=== PATIENT | male | born 1960 | race Caucasian/White ===

== ENCOUNTER 2016-06-29 08:39 | Emergency (ER) | payer OTHER ==
--- NOTE | 2016-06-29 09:01 | ED CLINICAL REPORT ---
Clinical Report - Physicians/Mid Levels [facility] [address] [place] [address] 06/29/2016 8:41 Patient: DANIELLE CAGE Time Seen: 0840. Arrived- By private vehicle. Historian- patient. HISTORY OF PRESENT ILLNESS Chief Complaint: WEAKNESS. right. The patient has had weakness. No numbness. This started today, patient was last known well (yesterday) and is still present (staying the same). It was abrupt in onset and has been constant but is not gone now. At its maximum deficit described as moderate. When seen in the E.D.,deficit described as moderate. No dizziness, altered mental status, seizure or blackouts. Usually is alert and oriented X3 and has normal mobility. (no recent travel, camping, or tick bites.). Similar symptoms previously: None. Recent medical care: Not recently seen/assessed. REVIEW OF SYSTEMS No fever, headache, head injury, chest pain or difficulty breathing. No cough, nausea, skin rash or vomiting. All systems otherwise negative, except as recorded above. PAST HISTORY See nurses notes. Problems: no known problems. Additional Surgeries: no known surgeries. Medications: None. Allergies: No Known Drug Allergy. SOCIAL HISTORY Never smoker. No alcohol use or drug use. Is a local resident. FAMILY HISTORY Negative. ADDITIONAL NOTES The nursing notes have been reviewed. PHYSICAL EXAM Vital Signs: 06/29/2016 08:41 BP: 180/110. HR: 93. RR: 22. O2 saturation: 100%. Temp: 98.3 F. Oxygen saturation normal. Appearance: Alert. No acute distress. Head: Head atraumatic. Eyes: Pupils equal, round and reactive to light. ENT: Normal ENT inspection. Airway intact. Pharynx normal. (Right-sided conjunctival injection. On fluorescein examination no uptake of dye. No foreign bodies. No discharge from the eye. No cell and flare. Negative Iva sign. No dendritic pattern. Patient is unable to completely close the right eye with normal blinking.). Neck: Normal inspection. Neck supple. CVS: Normal heart rate and rhythm. Heart sounds normal. Pulses normal. Respiratory: No respiratory distress. Breath sounds normal. Abdomen: Soft and nontender. No organomegaly. Back: Normal inspection. Skin: Skin warm and dry. Normal skin color. No rash. Normal skin turgor. Extremities: Extremities exhibit normal ROM. No lower extremity edema. Neuro: Alert. Oriented X 3. Mood/affect normal. Speech normal. No cerebellar findings. No motor deficit. No sensory deficit. Reflexes normal. 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 Forehead is not spared.). PROGRESS AND PROCEDURES Course of Care: The patient is a pleasant 55-year-old male presenting for evaluation of right-sided facial weakness. NDE ON EXAMINATION> Patient has no fever. Patient has no other neurological deficits noted. Appears to be peripheralin nature. Do not feel that this is stroke. Patient with isolated peripheral seventh nerve palsy. I discussion the patient in regards to risk factors for Lyme disease. Do not feel that further workup for Lyme disease is warranted at this time as patient has not had any recent exposures that would be concerning. Patient be treated with steroids and antivirals. I ointment will be provided forprotection of desiccation. Patient is stable outpatient candidate. Patient will be instructed to follow-up with his primary care doctor for further workup and management and other concerns. Discussed with patient workup, diagnosis, home care, follow-up, and return precautions. All questions have been answered. The patient expressed understanding of these instructions and was agreeable to them. Disposition: Discharged. Condition: good. 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 INSTRUCTIONS Warnings: GENERAL WARNINGS: Return or contact your physician immediately if your condition worsens or changes unexpectedly, if not improving as expected, or if other problems arise. Specifically return if pain, vomiting, bleeding, breathing difficulty or fever. Your Current Medications: CONTINUE TAKING THE FOLLOWING MEDICATIONS: None*. Prescription Medications: Acyclovir 400 mg: Take 1 orally five times a day for 10 days. No refill. (Disp suff quant. Substitution allowed.) Prednisone 50 mg: take 1 orally every day for 5 days. Dispense five (5). No refills. OTC Medications: Lacri-Lube ophthalmic ointment (available over the counter): take according to label instructions. Follow-up: Return to the emergency department as needed. Follow up with your doctor in three days. Reason for referral: recheck today's concerns. Summary of care provided to patient via paper. Screening today revealed the patient's blood pressure to be in the normal range. The patient should follow up with a primary care provider for blood pressure management. Understanding of the discharge instructions verbalized by patient. (Electronically signed by Vincent Curry Dr. 07/04/2016 7:11)
--- NOTE | 2016-06-29 09:01 | ED NURSING NOTES ---
Clinical Report - Nurses [facility] [address] [place] [address] 06/29/2016 8:41 [id number] TRI[facility] Triage time 08:41. Acuity: LEVEL 3. Chief Complaint: NUMBNESS and (RIGHT FACE). Alert. No acute distress. MIKAELA COMA SCORE: [place] Coma Scale: 15- eyes open spontaneously (4); best verbal response- oriented x 4 (5); best motor response- obeys commands (6). --08:47 Ade Dorado R.N. 08:41 06/29/16. BP: 180/110. HR: 93. RR: 22. O2 saturation: 100% on room air. Temp: 98.3 F (oral). --08:47 Ade Dorado R.N. Weight: 85.7 kg stated. Height/Length: 68 inches Per Patient. BMI: 28.7. --08:46 Ade Dorado R.N. Medications None. --08:45 Ade Dorado R.N. Medication/allergy information source: the patient. --08:47 Ade Dorado R.N. Allergies No Known Drug Allergy. --08:46 Ade Dorado R.N. History Arrived by private vehicle. Historian: patient. Accompanied by family. Primary physician (Av Bojorquez). This started last night. SOCIAL HX: Smoker- current status unknown (no). No alcohol use or drug use. FALL RISK ASSESSMENT: Fall risk assessment completed. No fall risk identified. FUNCTIONAL ASSESSMENT: Functional assessment: no impairments noted. LEARNING NEEDS ASSESSMENT: The learning needs assessment revealed no barriers. --08:47 Ade Dorado R.N. PROBLEMS: no known problems. ADDITIONAL SURGERIES: no known surgeries. Assessment GENERAL / NEURO / PSYCH: Alert. Oriented X 4. Appears in no acute distress. Patient appears calm and cooperative. RESPIRATORY: Respirations not labored. SKIN: Skin is warm and dry. --08:47 Ade Dorado R.N. Interventions ID band on patient. To treatment room. --08:47 Ade Dorado R.N. PHYSICAL ASSESSMENT 08:45 06/29/16. Ambulatory to room. Patient gowned. GENERAL / NEURO / PSYCH: Awake. Oriented X 4. Alert. Appears in no acute distress. Speech normal. Mood/affect normal. Moves all extremities. RESPIRATORY: Respirations not labored. CVS: Cardiac rhythm: sinus rhythm. SKIN: Skin is warm and dry. --08:45 Ade Dorado R.N. NURSING PROGRESS NOTES 08:45 06/29/16. Cardiac rhythm: sinus rhythm. radiation monitor, pulse oximeter and NIBP monitor placed on patient. Patient gowned. Head of bed elevated. Call light placed in reach. Side rails up x 1. Bed placed in lowest position. Brakes of bed on. --08:45 Ade Dorado R.N. 08:55 06/29/2016 FLUORESCEIN Opth soln 1 Strip given. (per ERMD). --09:05 Ade Dorado R.N. 09:00 06/29/2016 Proparacaine Eye Drops 2 drop given. Given in the right eye. (by ERMD). --09:05 Ade Droado R.N. 09:02 06/29/2016 Acyclovir PO Capsules 400 mg given. Allergies verified and confirmed 5 rights. --09:02 Ade Dorado R.N. 09:02 06/29/2016 Prednisone PO Tablets 60 mg given. Allergies verified and confirmed 5 rights. --09:02 Ade Dorado R.N. 09:10. Reassessment after procedure. He is calm and resting quietly. Overall patient status is the same- he states feels the same. GENERAL / NEURO / PSYCH: Alert. Oriented X 4. RESPIRATORY: No respiratory distress. SKIN: Skin is warm and dry. --09:17 Ade Dorado R.N. DISPOSITION / DISCHARGE Departure time: 909. Condition at departure: stable. No learning barriers present. Discharge instructions provided and reviewed with the patient. Reviewed medication(s). Prescription(s) given to the patient. Patient verbalized understanding. Written instructions provided in Togolese. The patient was discharged home and accompanied by spouse. He left the Emergency Department ambulatory and via private vehicle. FALL RISK ASSESSMENT: Fall risk assessment completed. No fall risk identified. --09:19 Ade Dorado R.N. 09:10 06/29/16. BP: 145/95. HR: 89. RR: 20. O2 saturation: 98% on room air. Temp: 98.3 F (oral). Pain level now: 0/10. --09:19 Ade Dorado R.N. Locked/Released at 06/29/2016 9:22 by Ade Dorado R.N.
--- NOTE | 2016-06-29 09:01 | ED NURSING NOTES ---
Clinical Report - Nurses Merged [facility] [address] [place] [address] 06/29/2016 8:41 [id number] Triage time 08:41. Acuity: LEVEL 3. Chief Complaint: NUMBNESS and (RIGHT FACE). Alert. No acute distress. MIKAELA COMA SCORE: [place] Coma Scale: 15- eyes open spontaneously (4); best verbal response- oriented x 4 (5); best motor response- obeys commands (6). --08:47 Ade Dorado R.N. 08:41 06/29/16. BP: 180/110. HR: 93. RR: 22. O2 saturation: 100% on room air. Temp: 98.3 F (oral). --08:47 Ade Dorado R.N. Weight: 85.7 kg stated. Height/Length: 68 inches Per Patient. BMI: 28.7. --08:46 Ade Dorado R.N. Medications None. --08:45 Ade Dorado R.N. Medication/allergy information source: the patient. --08:47 Aed Dorado R.N. Allergies No Known Drug Allergy. --08:46 Ade Dorado R.N. History Arrived by private vehicle. Historian: patient. Accompanied by family. Primary physician (Av Bojorquez). This started last night. SOCIAL HX: Smoker- current status unknown (no). No alcohol use or drug use. FALL RISK ASSESSMENT: Fall risk assessment completed. No fall risk identified. FUNCTIONAL ASSESSMENT: Functional assessment: no impairments noted. LEARNING NEEDS ASSESSMENT: The learning needs assessment revealed no barriers. --08:47 Ade Dorado R.N. PROBLEMS: no known problems. ADDITIONAL SURGERIES: no known surgeries. Assessment GENERAL / NEURO / PSYCH: Alert. Oriented X 4. Appears in no acute distress. Patient appears calm and cooperative. RESPIRATORY: Respirations not labored. SKIN: Skin is warm and dry. --08:47 Ade Dorado R.N. Interventions ID band on patient. To treatment room. --08:47 Ade Dorado R.N. PHYSICAL ASSESSMENT 08:45 06/29/16. Ambulatory to room. Patient gowned. GENERAL / NEURO / PSYCH: Awake. Oriented X 4. Alert. Appears in no acute distress. Speech normal. Mood/affect normal. Moves all extremities. RESPIRATORY: Respirations not labored. CVS: Cardiac rhythm: sinus rhythm. SKIN: Skin is warm and dry. --08:45 Ade Dorado R.N. NURSING PROGRESS NOTES 08:45 06/29/16. Cardiac rhythm: sinus rhythm. clinical nurse, pulse oximeter and NIBP monitor placed on patient. Patient gowned. Head of bed elevated. Call light placed in reach. Side rails up x 1. Bed placed in lowest position. Brakes of bed on. --08:45 Ade Dorado R.N. 08:55 06/29/2016 FLUORESCEIN Opth soln 1 Strip given. (per ERMD). --09:05 Ade Dorado R.N. 09:00 06/29/2016 Proparacaine Eye Drops 2 drop given. Given in the right eye. (by ERMD). --09:05 Ade Dorado R.N. 09:02 06/29/2016 Acyclovir PO Capsules 400 mg given. Allergies verified and confirmed 5 rights. --09:02 Ade Dorado R.N. 09:02 06/29/2016 Prednisone PO Tablets 60 mg given. Allergies verified and confirmed 5 rights. --09:02 Ade Dorado R.N. 09:10. Reassessment after procedure. He is calm and resting quietly. Overall patient status is the same- he states feels the same. GENERAL / NEURO / PSYCH: Alert. Oriented X 4. RESPIRATORY: No respiratory distress. SKIN: Skin is warm and dry. --09:17 Ade Dorado R.N. DISPOSITION / DISCHARGE Departure time: 909. Condition at departure: stable. No learning barriers present. Discharge instructions provided and reviewed with the patient. Reviewed medication(s). Prescription(s) given to the patient. Patient verbalized understanding. Written instructions provided in Taiwanese. The patient was discharged home and accompanied by spouse. He left the Emergency Department ambulatory and via private vehicle. FALL RISK ASSESSMENT: Fall risk assessment completed. No fall risk identified. --09:19 Ade Dorado R.N. 09:10 06/29/16. BP: 145/95. HR: 89. RR: 20. O2 saturation: 98% on room air. Temp: 98.3 F (oral). Pain level now: 0/10. --09:19 Ade Dorado R.N. Locked/Released at 06/29/2016 9:22 by Ade Dorado R.N.
--- NOTE | 2016-06-29 09:01 | ED ORDER SUMMARY ---
..... Patient: DANIELLE CAGE OrderSheet [facility] VisitID: [id number] [address] [place] [address] 55y, M Registration Date/Time: 06/29/2016 ORDER SHEET Weight: 85.7 kg (stated) Allergies: No Known Drug Allergy GENERAL ORDERS: MEDICATION ORDERS: Fluorescein Eye Strips 1 strips (NOW) (08:48 06/29/2016 Piedad Billy) (Ack 8:54 Eneida R.N.) (9:05 Eneida R.N.) Proparacaine Eye Drops (Solution 0.5 %) 2 drops (NOW, affected eye) (08:48 06/29/2016 Piedad Billy) (Ack 8:54 Eneida R.N.) (9:05 Eneida R.N.) Acyclovir PO 400 mg (NOW) (08:50 06/29/2016 Piedad Billy) (Ack 8:54 Eneida R.N.) (9:02 Eneida R.N.) Prednisone PO 60 mg (NOW) (08:50 06/29/2016 Piedad Billy) (Ack 8:54 Eneida R.N.) (9:02 Eneida R.N.) IV FLUIDS: ORDER SHEET NOTES: [Electronically signed by Ade Dorado R.N. (09:22 06/29/2016)] [Electronically signed by Vincent Curry Dr. (07:11 07/04/2016)] [Electronically locked/signed by Ade Dorado R.N. (09:22 06/29/2016)]
--- NOTE | 2016-06-29 09:01 | ED ORDER SUMMARY ---
..... Patient: DANIELLE CAGE OrderSheet [facility] VisitID: [id number] [address] [place] [address] 55y, M Registration Date/Time: 06/29/2016 ORDER SHEET Weight: 85.7 kg (stated) Allergies: No Known Drug Allergy GENERAL ORDERS: MEDICATION ORDERS: Fluorescein Eye Strips 1 strips (NOW) (08:48 06/29/2016 Piedad Billy) (Ack 8:54 Eneida R.N.) (9:05 Eneida R.N.) Proparacaine Eye Drops (Solution 0.5 %) 2 drops (NOW, affected eye) (08:48 06/29/2016 Piedad Billy) (Ack 8:54 Eneida R.N.) (9:05 Eneida R.N.) Acyclovir PO 400 mg (NOW) (08:50 06/29/2016 Piedad Billy) (Ack 8:54 Eneida R.N.) (9:02 Eneida R.N.) Prednisone PO 60 mg (NOW) (08:50 06/29/2016 Piedad Billy) (Ack 8:54 Eneida R.N.) (9:02 Eneida R.N.) IV FLUIDS: ORDER SHEET NOTES: [Electronically signed by Ade Dorado R.N. (09:22 06/29/2016)] [Electronically signed by Vincent Curry Dr. (07:11 07/04/2016)] [Electronically locked/signed by Ade Dorado R.N. (09:22 06/29/2016)]
--- NOTE | 2016-07-04 07:11 | ED MAR SUMMARY ---
..... Medication Administration Record [facility] [address] [place] [address] Patient: DANIELLE CAGE Visit ID: [id number] 55y, M Weight: 85.7 kg Height/Length: 68 in BMI: 28.7 ALLERGIES: No Known Drug Allergy Given 08:55 06/29/2016 Ade Dorado R.N. Medication Administered: FLUORESCEIN [EYE STRIPS], Dose: 1 Strip Opth soln. Medication Ordered: Fluorescein Eye Strips 1 strips (NOW). Given 09:00 06/29/2016 Ade Dorado R.N. Medication Administered: PROPARACAINE [EYE DROPS], Dose: 2 drop Eye Drops. Medication Ordered: Proparacaine Eye Drops (Solution 0.5 %) 2 drops (NOW, affected eye). Given 09:02 06/29/2016 Ade Dorado R.N. Medication Administered: ACYCLOVIR [PO], Dose: 400 mg Capsules PO. Medication Ordered: Acyclovir PO 400 mg (NOW). Given 09:02 06/29/2016 Ade Dorado R.N. Medication Administered: PREDNISONE [PO], Dose: 60 mg Tablets PO. Medication Ordered: Prednisone PO 60 mg (NOW).
--- NOTE | 2016-07-04 07:11 | ED DISCHARGE INSTRUCTIONS ---
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 INSTRUCTIONS Warnings: GENERAL WARNINGS: Return or contact your physician immediately if your condition worsens or changes unexpectedly, if not improving as expected, or if other problems arise. Specifically return if pain, vomiting, bleeding, breathing difficulty or fever. Your Current Medications: CONTINUE TAKING THE FOLLOWING MEDICATIONS: None*. Prescription Medications: Acyclovir 400 mg: Take 1 orally five times a day for 10 days. No refill. (Disp suff quant. Substitution allowed.) Prednisone 50 mg: take 1 orally every day for 5 days. Dispense five (5). No refills. OTC Medications: Lacri-Lube ophthalmic ointment (available over the counter): take according to label instructions. Follow-up: Return to the emergency department as needed. Follow up with your doctor in three days. Reason for referral: recheck today's concerns. Summary of care provided to patient via paper. Screening today revealed the patient's blood pressure to be in the normal range. The patient should follow up with a primary care provider for blood pressure management. Understanding of the discharge instructions verbalized by patient. ADDITIONAL INFORMATION Charles's Palsy Charles's Palsy is a problem involving the nerve that controls the muscles on one side of the face. The cause is unknown, but may be related to inflammation of the nerve. Most persons with this problem recover completely within 3-6 months. Symptoms on the involved side of the face may include: inability to close the upper eyelid, excess tearing, facial drooping with uneven mouth shape, drooling, facial numbness or pain, changes in taste, sensitivity to sound. The most serious problem is possible injury to the eye. Since you cannot blink normally, you must protect your eye from flying dust particles, wind, etc. Also, since tears cannot lubricate the eye without blinking, there is danger that the cornea (clear part in front of the colored iris) will dry out and form an ulcer. This could permanently affect vision. Home Care: Use Artificial Tears frequently during the day and at bedtime to prevent drying. These drops are available without prescription at your drug store. Wear protective glasses especially when outside to protect from flying debris. Tape the eyelid closed at bedtime with a paper tape (available at your pharmacy). This has a very mild adhesive to avoid injury to the lid. This will protect your eye from injury while you sleep. Sometimes medicines are prescribed to reduce inflammation or treat specific viral infections of the nerve. If medicines are prescribed, take them exactly as directed. Follow Up with your doctor or with an Ear/Nose/Throat specialist within the next two weeks. Get Prompt Medical Attention if any of the following occur: Redness of the eye or pus draining from the eye Change in vision or pain in the eye Appearance of headache, neck pain, fever or other unexplained symptoms Difficulty with speech or walking Weakness in one arm or leg Acyclovir Oral tablet What is this medicine? ACYCLOVIR (ay MAICOE kloe veer) is an antiviral medicine. It is used to treat or prevent infections caused by certain kinds of viruses. Examples of these infections include herpes and shingles. This medicine will not cure herpes. How should I use this medicine? Take this medicine by mouth with a glass of water. Follow the directions on the prescription label. You can take it with or without food. Take your medicine at regular intervals. Do not take your medicine more often than directed. Take all of your medicine as directed even if you think your are better. Do not skip doses or stop your medicine early. Talk to your locum tenens regarding the use of this medicine in children. While this drug may be prescribed for selected conditions, precautions do apply. What side effects may I notice from receiving this medicine? Side effects that you should report to your doctor or health resident caregiver as soon as possible: allergic reactions like skin rash, itching or hives, swelling of the face, lips, or tongue chest pain confusion, hallucinations, tremor dark urine increased sensitivity to the sun redness, blistering, peeling or loosening of the skin, including inside the mouth seizures trouble passing urine or change in the amount of urine unusual bleeding or bruising, or pinpoint red spots on the skin unusually weak or tired yellowing of the eyes or skin Side effects that usually do not require medical attention (report to your doctor or health resident caregiver if they continue or are bothersome): diarrhea fever headache nausea, vomiting stomach upset What may interact with this medicine? probenecid What if I miss a dose? If you miss a dose, take it as soon as you can. If it is almost time for your next dose, take only that dose. Do not take double or extra doses. Where should I keep my medicine? Keep out of the reach of children. Store at room temperature between 15 and 25 degrees C (59 and 77 degrees F). Throw away any unused medicine after the expiration date. What should I tell my health care provider before I take this medicine? They need to know if you have any of these conditions: kidney disease an unusual or allergic reaction to acyclovir, ganciclovir, valacyclovir, other medicines, foods, dyes, or preservatives or trying to get breast-feeding What should I watch for while using this medicine? Tell your doctor or health resident caregiver if your symptoms do not improve. This medicine works best when started very early in the course of an infection. Begin treatment at the first signs of infection. Drink 6 to 8 glasses of water or fluids every day while you are taking this medicine. This will help prevent side effects. You can still pass chickenpox, shingles, or herpes to another person even while you are taking this medicine. Avoid contact with others as directed. Genital herpes is a sexually transmitted disease. Talk to your doctor about how to stop the spread of infection. Prednisone Oral tablet What is this medicine? PREDNISONE (PRED ni sone) is a corticosteroid. It is commonly used to treat inflammation of the skin, joints, lungs, and other organs. Common conditions treated include asthma, allergies, and arthritis. It is also used for other conditions, such as blood disorders and diseases of the adrenal glands. How should I use this medicine? Take this medicine by mouth with a glass of water. Follow the directions on the prescription label. Take this medicine with food. If you are taking this medicine once a day, take it in the morning. Do not take more medicine than you are told to take. Do not suddenly stop taking your medicine because you may develop a severe reaction. Your doctor will tell you how much medicine to take. If your doctor wants you to stop the medicine, the dose may be slowly lowered over time to avoid any side effects. Talk to your locum tenens regarding the use of this medicine in children. Special care may be needed. What side effects may I notice from receiving this medicine? Side effects that you should report to your doctor or health resident caregiver as soon as possible: allergic reactions like skin rash, itching or hives, swelling of the face, lips, or tongue changes in emotions or moods changes in vision depressed mood eye pain fever or chills, cough, sore throat, pain or difficulty passing urine increased thirst swelling of ankles, feet Side effects that usually do not require medical attention (report to your doctor or health resident caregiver if they continue or are bothersome): confusion, excitement, restlessness headache nausea, vomiting skin problems, acne, thin and shiny skin trouble sleeping weight gain What may interact with this medicine? Do not take this medicine with any of the following medications: metyrapone mifepristone This medicine may also interact with the following medications: aminoglutethimide amphotericin B aspirin and aspirin-like medicines barbiturates certain medicines for diabetes, like glipizide or glyburide cholestyramine cholinesterase inhibitors cyclosporine digoxin diuretics ephedrine female hormones, like estrogens and control pills isoniazid ketoconazole NSAIDS, medicines for pain and inflammation, like ibuprofen or naproxen phenytoin rifampin toxoids vaccines warfarin What if I miss a dose? If you miss a dose, take it as soon as you can. If it is almost time for your next dose, talk to your doctor or health resident caregiver. You may need to miss a dose or take an extra dose. Do not take double or extra doses without advice. Where should I keep my medicine? Keep out of the reach of children. Store at room temperature between 15 and 30 degrees C (59 and 86 degrees F). Protect from light. Keep container tightly closed. Throw away any unused medicine after the expiration date. What should I tell my health care provider before I take this medicine? They need to know if you have any of these conditions: Diana's syndrome diabetes glaucoma heart disease high blood pressure infection (especially a virus infection such as chickenpox, cold sores, or herpes) kidney disease liver disease mental illness myasthenia gravis osteoporosis seizures stomach or intestine problems thyroid disease an unusual or allergic reaction to lactose, prednisone, other medicines, foods, dyes, or preservatives or trying to get breast-feeding What should I watch for while using this medicine? Visit your doctor or health resident caregiver for regular checks on your progress. If you are taking this medicine over a prolonged period, carry an identification card with your name and address, the type and dose of your medicine, and your doctor's name and address. This medicine may increase your risk of getting an infection. Tell your doctor or health resident caregiver if you are around anyone with measles or chickenpox, or if you develop sores or blisters that do not heal properly. If you are going to have surgery, tell your doctor or health resident caregiver that you have taken this medicine within the last twelve months. Ask your doctor or health resident caregiver about your diet. You may need to lower the amount of salt you eat. This medicine may affect blood sugar levels. If you have diabetes, check with your doctor or health resident caregiver before you change your diet or the dose of your diabetic medicine. You have been given the following additional information: Charles's Palsy Acyclovir Oral tablet Prednisone Oral tablet (Electronically signed by Vincent Curry Dr. 07/04/2016 7:11)
--- NOTE | 2016-07-04 07:11 | ED MED RECONCILIATION SUMMARY ---
Patient: DANIELLE CAGE Medication Reconciliation Report [facility] VisitID: [id number] [address] [place] [address] 55y, M Registration Date/Time: 06/29/2016 Weight: 85.7 kg Height/Length: 68 in. BMI: 28.7 ALLERGIES: No Known Drug Allergy The patient's Home Medications are listed below: NONE. The source(s) of the original Home Medication information: patient The following Medications were given to the patient in the Emergency Department: Acyclovir [PO] PO 400 mg, administered: 06/29/2016 9:02:00 AM Prednisone [PO] PO 60 mg, administered: 06/29/2016 9:02:00 AM Proparacaine [Eye Drops] Eye Drops 2 drop, administered: 06/29/2016 9:00:00 AM FLUORESCEIN [EYE STRIPS] Opth soln 1 Strip, administered: 06/29/2016 8:55:00 AM The following Medications were prescribed to the patient: Acyclovir 400 mg: Take 1 orally five times a day for 10 days. No refill.(Disp suff quant. Substitution allowed.) -- Vincent Curry Dr. Lacri-Lube ophthalmic ointment (available over the counter): take according to label instructions. -- Vincent Curry Dr. Prednisone 50 mg: take 1 orally every day for 5 days. Dispense five (5). No refills. -- Vincent Curry Dr.
--- NOTE | 2016-07-04 07:11 | ED DISCHARGE INSTRUCTIONS ---
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 INSTRUCTIONS Warnings: GENERAL WARNINGS: Return or contact your physician immediately if your condition worsens or changes unexpectedly, if not improving as expected, or if other problems arise. Specifically return if pain, vomiting, bleeding, breathing difficulty or fever. Your Current Medications: CONTINUE TAKING THE FOLLOWING MEDICATIONS: None*. Prescription Medications: Acyclovir 400 mg: Take 1 orally five times a day for 10 days. No refill. (Disp suff quant. Substitution allowed.) Prednisone 50 mg: take 1 orally every day for 5 days. Dispense five (5). No refills. OTC Medications: Lacri-Lube ophthalmic ointment (available over the counter): take according to label instructions. Follow-up: Return to the emergency department as needed. Follow up with your doctor in three days. Reason for referral: recheck today's concerns. Summary of care provided to patient via paper. Screening today revealed the patient's blood pressure to be in the normal range. The patient should follow up with a primary care provider for blood pressure management. Understanding of the discharge instructions verbalized by patient. ADDITIONAL INFORMATION Charles's Palsy Charles's Palsy is a problem involving the nerve that controls the muscles on one side of the face. The cause is unknown, but may be related to inflammation of the nerve. Most persons with this problem recover completely within 3-6 months. Symptoms on the involved side of the face may include: inability to close the upper eyelid, excess tearing, facial drooping with uneven mouth shape, drooling, facial numbness or pain, changes in taste, sensitivity to sound. The most serious problem is possible injury to the eye. Since you cannot blink normally, you must protect your eye from flying dust particles, wind, etc. Also, since tears cannot lubricate the eye without blinking, there is danger that the cornea (clear part in front of the colored iris) will dry out and form an ulcer. This could permanently affect vision. Home Care: Use Artificial Tears frequently during the day and at bedtime to prevent drying. These drops are available without prescription at your drug store. Wear protective glasses especially when outside to protect from flying debris. Tape the eyelid closed at bedtime with a paper tape (available at your pharmacy). This has a very mild adhesive to avoid injury to the lid. This will protect your eye from injury while you sleep. Sometimes medicines are prescribed to reduce inflammation or treat specific viral infections of the nerve. If medicines are prescribed, take them exactly as directed. Follow Up with your doctor or with an Ear/Nose/Throat specialist within the next two weeks. Get Prompt Medical Attention if any of the following occur: Redness of the eye or pus draining from the eye Change in vision or pain in the eye Appearance of headache, neck pain, fever or other unexplained symptoms Difficulty with speech or walking Weakness in one arm or leg Acyclovir Oral tablet What is this medicine? ACYCLOVIR (ay MAICOE kloe veer) is an antiviral medicine. It is used to treat or prevent infections caused by certain kinds of viruses. Examples of these infections include herpes and shingles. This medicine will not cure herpes. How should I use this medicine? Take this medicine by mouth with a glass of water. Follow the directions on the prescription label. You can take it with or without food. Take your medicine at regular intervals. Do not take your medicine more often than directed. Take all of your medicine as directed even if you think your are better. Do not skip doses or stop your medicine early. Talk to your electric meter installer regarding the use of this medicine in children. While this drug may be prescribed for selected conditions, precautions do apply. What side effects may I notice from receiving this medicine? Side effects that you should report to your doctor or health housekeeper child care as soon as possible: allergic reactions like skin rash, itching or hives, swelling of the face, lips, or tongue chest pain confusion, hallucinations, tremor dark urine increased sensitivity to the sun redness, blistering, peeling or loosening of the skin, including inside the mouth seizures trouble passing urine or change in the amount of urine unusual bleeding or bruising, or pinpoint red spots on the skin unusually weak or tired yellowing of the eyes or skin Side effects that usually do not require medical attention (report to your doctor or health housekeeper child care if they continue or are bothersome): diarrhea fever headache nausea, vomiting stomach upset What may interact with this medicine? probenecid What if I miss a dose? If you miss a dose, take it as soon as you can. If it is almost time for your next dose, take only that dose. Do not take double or extra doses. Where should I keep my medicine? Keep out of the reach of children. Store at room temperature between 15 and 25 degrees C (59 and 77 degrees F). Throw away any unused medicine after the expiration date. What should I tell my health care provider before I take this medicine? They need to know if you have any of these conditions: kidney disease an unusual or allergic reaction to acyclovir, ganciclovir, valacyclovir, other medicines, foods, dyes, or preservatives or trying to get breast-feeding What should I watch for while using this medicine? Tell your doctor or health housekeeper child care if your symptoms do not improve. This medicine works best when started very early in the course of an infection. Begin treatment at the first signs of infection. Drink 6 to 8 glasses of water or fluids every day while you are taking this medicine. This will help prevent side effects. You can still pass chickenpox, shingles, or herpes to another person even while you are taking this medicine. Avoid contact with others as directed. Genital herpes is a sexually transmitted disease. Talk to your doctor about how to stop the spread of infection. Prednisone Oral tablet What is this medicine? PREDNISONE (PRED ni sone) is a corticosteroid. It is commonly used to treat inflammation of the skin, joints, lungs, and other organs. Common conditions treated include asthma, allergies, and arthritis. It is also used for other conditions, such as blood disorders and diseases of the adrenal glands. How should I use this medicine? Take this medicine by mouth with a glass of water. Follow the directions on the prescription label. Take this medicine with food. If you are taking this medicine once a day, take it in the morning. Do not take more medicine than you are told to take. Do not suddenly stop taking your medicine because you may develop a severe reaction. Your doctor will tell you how much medicine to take. If your doctor wants you to stop the medicine, the dose may be slowly lowered over time to avoid any side effects. Talk to your electric meter installer regarding the use of this medicine in children. Special care may be needed. What side effects may I notice from receiving this medicine? Side effects that you should report to your doctor or health housekeeper child care as soon as possible: allergic reactions like skin rash, itching or hives, swelling of the face, lips, or tongue changes in emotions or moods changes in vision depressed mood eye pain fever or chills, cough, sore throat, pain or difficulty passing urine increased thirst swelling of ankles, feet Side effects that usually do not require medical attention (report to your doctor or health housekeeper child care if they continue or are bothersome): confusion, excitement, restlessness headache nausea, vomiting skin problems, acne, thin and shiny skin trouble sleeping weight gain What may interact with this medicine? Do not take this medicine with any of the following medications: metyrapone mifepristone This medicine may also interact with the following medications: aminoglutethimide amphotericin B aspirin and aspirin-like medicines barbiturates certain medicines for diabetes, like glipizide or glyburide cholestyramine cholinesterase inhibitors cyclosporine digoxin diuretics ephedrine female hormones, like estrogens and control pills isoniazid ketoconazole NSAIDS, medicines for pain and inflammation, like ibuprofen or naproxen phenytoin rifampin toxoids vaccines warfarin What if I miss a dose? If you miss a dose, take it as soon as you can. If it is almost time for your next dose, talk to your doctor or health housekeeper child care. You may need to miss a dose or take an extra dose. Do not take double or extra doses without advice. Where should I keep my medicine? Keep out of the reach of children. Store at room temperature between 15 and 30 degrees C (59 and 86 degrees F). Protect from light. Keep container tightly closed. Throw away any unused medicine after the expiration date. What should I tell my health care provider before I take this medicine? They need to know if you have any of these conditions: Diana's syndrome diabetes glaucoma heart disease high blood pressure infection (especially a virus infection such as chickenpox, cold sores, or herpes) kidney disease liver disease mental illness myasthenia gravis osteoporosis seizures stomach or intestine problems thyroid disease an unusual or allergic reaction to lactose, prednisone, other medicines, foods, dyes, or preservatives or trying to get breast-feeding What should I watch for while using this medicine? Visit your doctor or health housekeeper child care for regular checks on your progress. If you are taking this medicine over a prolonged period, carry an identification card with your name and address, the type and dose of your medicine, and your doctor's name and address. This medicine may increase your risk of getting an infection. Tell your doctor or health housekeeper child care if you are around anyone with measles or chickenpox, or if you develop sores or blisters that do not heal properly. If you are going to have surgery, tell your doctor or health housekeeper child care that you have taken this medicine within the last twelve months. Ask your doctor or health housekeeper child care about your diet. You may need to lower the amount of salt you eat. This medicine may affect blood sugar levels. If you have diabetes, check with your doctor or health housekeeper child care before you change your diet or the dose of your diabetic medicine. You have been given the following additional information: Charles's Palsy Acyclovir Oral tablet Prednisone Oral tablet (Electronically signed by Vincent Curry Dr. 07/04/2016 7:11)
--- NOTE | 2016-07-04 07:11 | ED MAR SUMMARY ---
..... Medication Administration Record [facility] [address] [place] [address] Patient: DANIELLE CAGE Visit ID: [id number] 55y, M Weight: 85.7 kg Height/Length: 68 in BMI: 28.7 ALLERGIES: No Known Drug Allergy Given 08:55 06/29/2016 Ade Dorado R.N. Medication Administered: FLUORESCEIN [EYE STRIPS], Dose: 1 Strip Opth soln. Medication Ordered: Fluorescein Eye Strips 1 strips (NOW). Given 09:00 06/29/2016 Ade Dorado R.N. Medication Administered: PROPARACAINE [EYE DROPS], Dose: 2 drop Eye Drops. Medication Ordered: Proparacaine Eye Drops (Solution 0.5 %) 2 drops (NOW, affected eye). Given 09:02 06/29/2016 Ade Dorado R.N. Medication Administered: ACYCLOVIR [PO], Dose: 400 mg Capsules PO. Medication Ordered: Acyclovir PO 400 mg (NOW). Given 09:02 06/29/2016 Ade Dorado R.N. Medication Administered: PREDNISONE [PO], Dose: 60 mg Tablets PO. Medication Ordered: Prednisone PO 60 mg (NOW).
--- NOTE | 2016-07-04 07:11 | ED MED RECONCILIATION SUMMARY ---
Patient: DANIELLE CAGE Medication Reconciliation Report [facility] VisitID: [id number] [address] [place] [address] 55y, M Registration Date/Time: 06/29/2016 Weight: 85.7 kg Height/Length: 68 in. BMI: 28.7 ALLERGIES: No Known Drug Allergy The patient's Home Medications are listed below: NONE. The source(s) of the original Home Medication information: patient The following Medications were given to the patient in the Emergency Department: Acyclovir [PO] PO 400 mg, administered: 06/29/2016 9:02:00 AM Prednisone [PO] PO 60 mg, administered: 06/29/2016 9:02:00 AM Proparacaine [Eye Drops] Eye Drops 2 drop, administered: 06/29/2016 9:00:00 AM FLUORESCEIN [EYE STRIPS] Opth soln 1 Strip, administered: 06/29/2016 8:55:00 AM The following Medications were prescribed to the patient: Acyclovir 400 mg: Take 1 orally five times a day for 10 days. No refill.(Disp suff quant. Substitution allowed.) -- Vincent uCrry Dr. Lacri-Lube ophthalmic ointment (available over the counter): take according to label instructions. -- Vincent Curry Dr. Prednisone 50 mg: take 1 orally every day for 5 days. Dispense five (5). No refills. -- Vincent Curry Dr.
== END 2016-06-29 09:10 | disposition home or self-care (01) ==
LOC: ED SRH 08:39
DX: G51.0 Bell's palsy (principal)